=== PATIENT | male | born 1990 | race Caucasian/White ===

== ENCOUNTER 2017-02-05 20:15 | Emergency (ER) | payer OTHER ==
[~2017-02-05] VITALS: Ht 177.8 cm; Wt 81.6 kg
--- NOTE | 2017-02-05 20:40 | NUR ---
PT PRESENTED TO THE ER WITH A C/O EPIGASTRIC AND UMBILICAL ABD PAIN 10/25. SINCE SATURDAY AM. PT HAS HAD DIARRHEA SINCE SATURDAY. LAST BM WAS 0300 TODAY AND LAST TIME VOMITTED WAS 0200 TODAY. PT AMBULATED TO THE BATHROOM GUARDING HIS ABD. URINE SAMPLE OBTAINED. PT THEM AMBULATED BACK TO BED #2. PT IS ON THE MONITOR AND CONTINUOUS PULSE OX. RESP EVEN AND UNLABORED.
--- NOTE | 2017-02-05 20:50 | NUR ---
MIKHAIL LIANG IS AT THE BEDSIDE EVALUATING THE PT.
[2017-02-05] MEDS ORDERED: KETOROLAC TROMETHAMINE INJ 30 MG/ML VIAL ONE (20:57)
[2017-02-05] MEDS ORDERED: ONDANSETRON HCL/PF 4 MG/2 ML VIAL ONE (20:57)
[2017-02-05] MEDS ORDERED: KETOROLAC TROMETHAMINE INJ 30 MG/ML VIAL IV ONE (21:00)
[2017-02-05] MEDS ORDERED: IV NS 0.9% 1,000 ML BAG IV ONE (21:00)
[2017-02-05] MEDS ORDERED: ONDANSETRON HCL/PF 4 MG/2 ML VIAL IVP ONE (21:00)
--- NOTE | 2017-02-05 21:07 | NUR ---
PT REC'D MEDICATION ORDERED.
[2017-02-05 21:13] LABS: APPEARANCE,URINE Clear (CLEAR); BILIRUBIN,URINE SMALL (NEGATIVE); BLOOD, URINE Trace-intact Ery/uL (NEGATIVE); COLOR,URINE Yellow (YELLOW); KETONES,URINE 40 (NEGATIVE); LEUKOCYTE ESTERASE ,URINE Negative (NEGATIVE); NITRITE, URINE Negative (NEGATIVE); PROTEIN,URINE 30 mg/dl (NEGATIVE); UGLUCOSE Negative (NEGATIVE); UROBILINOGEN,URINE 0.2 EU/dL (0.2)
[2017-02-05 21:14] LABS: BASOPHILS % (AUTO) 0.1 % (0.0-2.0); EOSINOPHILS # (AUTO) 0.1 /CMM (0.0-0.7); EOSINOPHILS % (AUTO) 0.4 % (0.0-6.0); HEMATOCRIT 46 % (39-51); HEMOGLOBIN 15.9 g/dL (13.5-17.5); LYMPHOCYTES # (AUTO) 0.6 /CMM (0.8-4.8); LYMPHOCYTES % (AUTO) 4.1 % (20.0-44.0); MEAN CORPUSCULAR HEMOGLOBIN 32 PG (26.0-33.0); MEAN CORPUSCULAR HGB CONC 34 g/dl (31.0-36.0); MEAN CORPUSCULAR VOLUME 93 fL (80-96); MONOCYTES # (AUTO) 0.4 /CMM (0.1-1.30); MONOCYTES % (AUTO) 2.6 % (2.0-12.0); NEUTROPHILS # (AUTO) 13.7 /CMM (1.8-8.9); NEUTROPHILS % (AUTO) 92.8 % (43.0-81.0); PLATELET COUNT (AUTO) 241 /CMM (150-450); RDW COEFFICIENT OF VARIATION 11.7 (11.5-15.0); RED BLOOD CELL COUNT(AUTO) 4.94 MIL/uL (4.5-6.0); WHITE BLOOD COUNT (AUTO) 14.8 K/uL (4.3-11.0)
[2017-02-05 21:20] LABS: CALCIUM, SERUM 9.1 mg/dL (8.5-10.1); POTASSIUM 3.2 mmol/L (3.5-5.1)
[2017-02-05 21:23] LABS: INR 0.95 (0.87-1.13); PROTHROMBIN TIME 9.9 SECS (9.5-12.7)
[2017-02-05 21:23] LABS: BACTERIA,URINE None seen /HPF (None Seen); MUCUS,URINE Many /LPF (None Seen); SQUAMOUS EPITHELIAL CELL,UR Few /HPF (None Seen); WBC,URINE 0-2 /HPF (0-3)
[2017-02-05 21:25] LABS: ALBUMIN 4.1 g/dL (3.4-5.0); BILIRUBIN,DIRECT 0.1 mg/dL (0.0-0.2); BILIRUBIN,TOTAL 0.5 mg/dL (0.2-1.0); TOTAL PROTEIN, SERUM 7.7 g/dL (6.4-8.2)
[2017-02-05] MEDS ORDERED: POTASSIUM CHLORIDE 20 MEQ TAB.PRT.SR PO ONE ×2 (21:30→21:38)
--- NOTE | 2017-02-05 22:14 | NUR ---
IV removed. Catheter intact and site benign. Pressure and 4x4 applied to site. No bleeding noted.Patient discharged to home in stable condition. Written and verbal after care instructions given. Patient verbalizes understanding of instruction. PT'S BROTHER IS DRIVING PT HOME. VSS.
[2017-02-05 22:17] VITALS: BP 144/67
== END 2017-02-05 22:17 | disposition home or self-care (01) ==
LOC: ER 20:15
DX: A08.4 Viral intestinal infection, unspecified (principal)
CPT/HCPCS: 36415; 80048; 80076; 81001; 83690; 85025; 85730; 96361; 96374; 96375; 99284; A4606; J1885; J2405; Z7610; 81000-TC

== ENCOUNTER 2017-06-24 12:27 | Inpatient (IN) | payer MEDICAID, OTHER ==
[~2017-06-24] VITALS: Ht 185.4 cm; Wt 91.6 kg
--- NOTE | 2017-06-24 13:00 | NUR ---
Recieved patient to ed bed 12, pt is a/ox4 with c/o right sided abd pain x saturday. facial grimacing noted, guarding site. Skin is warm and non diaphoretic. NAD. VSS RR even and unlabored. Will cont to monitor
[2017-06-24] MEDS ORDERED: ONDANSETRON HCL/PF 4 MG/2 ML VIAL ONE ×2 (13:16→19:36)
[2017-06-24] MEDS ORDERED: HYDROMORPHONE INJ 2 MG/ML DISP.SYRIN ONE (13:20)
[2017-06-24 13:30] LABS: CALCIUM, SERUM 9.2 mg/dL (8.5-10.1); CREATININE 0.9 mg/dL (0.6-1.3); POTASSIUM 4.3 mmol/L (3.5-5.1)
[2017-06-24] MEDS ORDERED: MORPHINE SULFATE INJ 2 MG/ML DISP.SYRIN IV ONE (13:30)
[2017-06-24] MEDS ORDERED: ONDANSETRON HCL/PF 4 MG/2 ML VIAL IVP ONE (13:30)
[2017-06-24] MEDS ORDERED: HYDROMORPHONE 1 MG/1 ML DISP.SYRIN IV ONE (13:30)
[2017-06-24] MEDS ORDERED: IV NS 0.9% 1,000 ML BAG IV ONE (13:30)
[2017-06-24 13:33] LABS: INR 0.89 (0.85-1.15)
[2017-06-24 13:36] LABS: BILIRUBIN,DIRECT 0.2 mg/dL (0.0-0.2); BILIRUBIN,TOTAL 0.9 mg/dL (0.2-1.0); TOTAL PROTEIN, SERUM 7.6 g/dL (6.4-8.2)
[2017-06-24 13:37] LABS: BASOPHILS % (AUTO) 0.1 % (0.0-2.0); EOSINOPHILS % (AUTO) 0.8 % (0.0-6.0); HEMATOCRIT 43 % (39-51); HEMOGLOBIN 14.9 g/dL (13.5-17.5); LYMPHOCYTES % (AUTO) 10.9 % (20.0-44.0); MEAN CORPUSCULAR HGB CONC 35 g/dl (31.0-36.0); MEAN CORPUSCULAR VOLUME 94 fL (80-96); MONOCYTES # (AUTO) 0.4 /CMM (0.1-1.30); MONOCYTES % (AUTO) 4.5 % (2.0-12.0); NEUTROPHILS # (AUTO) 7.7 /CMM (1.8-8.9); NEUTROPHILS % (AUTO) 83.7 % (43.0-81.0); PLATELET COUNT (AUTO) 233 /CMM (150-450); RDW COEFFICIENT OF VARIATION 13.3 (11.5-15.0); RED BLOOD CELL COUNT(AUTO) 4.56 MIL/uL (4.5-6.0); WHITE BLOOD COUNT (AUTO) 9.2 K/uL (4.3-11.0)
[2017-06-24 13:52] LABS: APPEARANCE,URINE Clear (CLEAR); BILIRUBIN,URINE Negative (NEGATIVE); BLOOD, URINE Negative Ery/uL (NEGATIVE); COLOR,URINE Yellow (YELLOW); KETONES,URINE Negative (NEGATIVE); LEUKOCYTE ESTERASE ,URINE Negative (NEGATIVE); NITRITE, URINE Negative (NEGATIVE); PH,URINE 7.5 (5.0-8.0); PROTEIN,URINE Negative (NEGATIVE); UGLUCOSE Negative (NEGATIVE); UROBILINOGEN,URINE 0.2 EU/dL (0.2)
[2017-06-24] MEDS ORDERED: IOHEXOL-300 100 ML VIAL IV ONE (14:22)
[2017-06-24] MEDS ORDERED: IV NS 0.9% 250 ML IV ONE (14:22)
--- NOTE | 2017-06-24 15:10 | NUR ---
PAGEAlesia OSORIO FOR CONSULT
[2017-06-24] MEDS ORDERED: IV D5/0.45 NACL 1,000 ML IV ONE (15:11)
--- NOTE | 2017-06-24 15:39 | NUR ---
CALLED NURSE SUP FOR MEDSURG BED
--- NOTE | 2017-06-24 15:44 | NUR ---
PAGED EPIC FOR PANEL
--- NOTE | 2017-06-24 16:02 | NUR ---
Report given to Theresa LAZAR for cont of care.
--- NOTE | 2017-06-24 16:19 | NUR ---
Pt transferred to floor in stable condition.
--- NOTE | 2017-06-24 16:30 | NUR ---
MS/r d engineer New admission from emergency room with appendicitis. Patient fully admitted, no skin issues. Awaiting admitting orders.
[2017-06-24 16:55] VITALS: BP 134/75
[2017-06-24 17:20] VITALS: BP 134/75
--- NOTE | 2017-06-24 17:41 | NUR ---
MS/RN Consents Consent forms signed, pateint scheduled for appendicitis at 6p.
[2017-06-24] MEDS ORDERED: MIDAZOLAM HCL 2 MG/2ML VIAL ONE (17:51)
[2017-06-24] MEDS ORDERED: FENTANYL PF 100MCG/2ML AMPUL ONE (17:52)
[2017-06-24] MEDS ORDERED: VASOPRESSIN INJ 20 UNIT/ML VIAL ONE (17:53)
[2017-06-24] MEDS ORDERED: SUCCINYLCHOLINE CHLORIDE 20 MG/ML VIAL ONE (17:53)
[2017-06-24] MEDS ORDERED: ROCURONIUM BROMIDE 50 MG/5 ML ONE (17:53)
[2017-06-24] MEDS ORDERED: BUPIVACAINE 0.25% 75 MG/30 ML VIAL ONE (18:07)
--- NOTE | 2017-06-24 18:10 | NUR ---
MS/hall porter Patient taken to operating room, medical record with patient.
[2017-06-24] MEDS ORDERED: LIDOCAINE 1%-EPI 1:100,000 50 ML VIAL IJ ONE (18:30)
--- NOTE | 2017-06-24 18:30 | NUR ---
MS/RN End note Patient in surgery.
[2017-06-24] MEDS ORDERED: ACETAMINOPHEN 325 MG TABLET PO PRN (19:30)
[2017-06-24] MEDS ORDERED: ONDANSETRON HCL/PF 4 MG/2 ML VIAL IVP PRN ×2 (19:30)
[2017-06-24] MEDS ORDERED: HYDROMORPHONE INJ 2 MG/ML DISP.SYRIN IV PRN (19:30)
[2017-06-24] MEDS ORDERED: MAGNESIUM HYDROXIDE 30 ML UDC PO PRN (19:30)
[2017-06-24] MEDS ORDERED: ZOLPIDEM TARTRATE 5 MG TABLET PO PRN (19:30)
[2017-06-24] MEDS ORDERED: Z GUARD REMEDY 2 OZ OINT TP PRN (19:30)
[2017-06-24 20:00] VITALS: BP 128/78
[2017-06-24] MEDS ORDERED: FENTANYL PF 100MCG/2ML AMPUL IV PRN (20:00)
--- NOTE | 2017-06-24 20:00 | NUR ---
MS RN NOTE: PATIENT BACK ON FROM SURGERY IN STABLE CONDITION. BREATHING EVEN AND UNLABORED, NO SOB NOTED. IV TO RAC IN PLACE. VITAL SIGNS STABLE. 3 LAP SITES TO ABDOMEN NOTED, WITH NO BLEEDING/DRAINAGE. BED LOCKED AND IN LOWEST POSITION, CALL LIGHT IN REACH. WILL CONTINUE TO MONITOR.
[2017-06-24 20:15] VITALS: BP 114/68
[2017-06-24 20:30] VITALS: BP 118/67
[2017-06-24] MEDS: PIPERACILLIN /TAZOBACTAM 3.375 G in IV D5W 50 ML IV SCH (20:51)
--- NOTE | 2017-06-24 21:00 | NUR ---
MS RN NOTE: PATIENT COMPLAINS OF PAIN 7/10 TO ABDOMEN, NORCO 5/325MG ORAL GIVEN PER MD ORDER. WILL CONTINUE TO MONITOR.
[2017-06-24] MEDS: HYDROCODONE/APAP 5/325MG 1 EACH TABLET PO PRN (22:49)
--- NOTE | 2017-06-25 01:00 | NUR ---
MS RN NOTE: PATIENT REQUESTING SLEEPING MEDICATIONS, AMBIEN 5MG ORAL GIVEN PER MD ORDER. WILL CONTINUE TO MONITOR.
[2017-06-25] MEDS: PIPERACILLIN /TAZOBACTAM 3.375 G in IV D5W 50 ML IV SCH ×3 (02:50→12:00)
--- NOTE | 2017-06-25 06:30 | NUR ---
MS RN NOTE: PATIENT RESTING IN BED, NO ACUTE DISTRESS NOTED. BREATHING EVEN AND UNLABORED, NO SOB NOTED. IV TO RAC IN PLACE. VITAL SIGNS STABLE. 3 LAP SITES TO ABDOMEN NOTED, WITH NO BLEEDING/DRAINAGE. BED LOCKED AND IN LOWEST POSITION, CALL LIGHT IN REACH. WILL ENDORSE TO DAY NURSE TO CONTINUE WITH PLAN OF CARE.
[2017-06-25 06:42] LABS: HEMATOCRIT 40 % (39-51); HEMOGLOBIN 14.1 g/dL (13.5-17.5); LYMPHOCYTES # (AUTO) 0.9 /CMM (0.8-4.8); LYMPHOCYTES % (AUTO) 9.8 % (20.0-44.0); MEAN CORPUSCULAR HGB CONC 35 g/dl (31.0-36.0); MEAN CORPUSCULAR VOLUME 95 fL (80-96); MONOCYTES # (AUTO) 0.4 /CMM (0.1-1.30); MONOCYTES % (AUTO) 4.5 % (2.0-12.0); NEUTROPHILS # (AUTO) 7.6 /CMM (1.8-8.9); NEUTROPHILS % (AUTO) 85.7 % (43.0-81.0); PLATELET COUNT (AUTO) 222 /CMM (150-450); RDW COEFFICIENT OF VARIATION 13.1 (11.5-15.0); RED BLOOD CELL COUNT(AUTO) 4.25 MIL/uL (4.5-6.0); WHITE BLOOD COUNT (AUTO) 8.9 K/uL (4.3-11.0)
[2017-06-25 07:04] LABS: CALCIUM, SERUM 8.6 mg/dL (8.5-10.1); CREATININE 1.1 mg/dL (0.6-1.3); PHOSPHORUS 4.1 mg/dL (2.5-4.9); POTASSIUM 4.1 mmol/L (3.5-5.1)
[2017-06-25 08:00] VITALS: BP 119/53
--- NOTE | 2017-06-25 08:00 | NUR ---
MS RN NOTES PATIENT IN BED RESTING NO SOB OR ACUTE DISTRESS NOTED. PATIENT ALERT, ORIENTED X4. NO SOB OR ACUTE DISTRESS NOTED. PATIENT WITH 3 SMALL SURGICAL INCISIONS ON THE ABDOMEN INTACT PATENT OPEN TO AIR. NO DRAINAGE NOTED. CLEAN DRY. PERIPHERAL IV INTACT PATENT. BED IN LOW LOCKED POSITION , CALL LIGHT WITHIN REACH. WILL CONTINUE TO MONITOR.
[2017-06-25] MEDS: HYDROCODONE/APAP 5/325MG 1 EACH TABLET PO PRN (08:36)
[2017-06-25] MEDS ORDERED: PANTOPRAZOLE 40 MG TABLET.DR PO SCH (09:00)
--- NOTE | 2017-06-25 10:00 | NUR ---
MS RN NOTES PATIENT SEEN AND EVALUATED BY GILDA DAVE CLEAR FOR DISCHARGE.
[2017-06-25] MEDS ORDERED: HYDR-552 PO (12:24)
[2017-06-25] MEDS ORDERED: CEPH-570 PO (12:24)
--- NOTE | 2017-06-25 13:00 | NUR ---
MS RN NOTES PATIENT DISCHARGED HOME WITH FRIEND. IN STABLE CONDITION. PATIENT ALERT, ORIENTED X3. DISCHARGE INSTRUCTIONS PROVIDED VERBALIZED UNDERSTANDING. DR. SEXTON INFORMATION PROVIDED FOR FOLLOW UP. MD AWARE OF ALL ABNORMAL LABS. PERIPHERAL IV REMOVED WITH MINIMAL BLEEDING. ID BAND REMOVED. EDUCATED ON INCISION CARE AFTER SURGERY, VERBALIZED UNDERSTANDING. ALL BELONGINGS ACCOUNTED FOR, BELONGING LIST SIGNED. PROVIDED PRESCRIPTION TO PATIENT AND INSTRUCTED ON USE OF MEDICATIONS. PATIENT ESCORTED TO CAR BY WOODYARD OPERATOR.
== END 2017-06-25 13:00 | disposition home or self-care (01) | DRG 343 ==
LOC: ER 12:28 → MEDSG2 16:04
PROVIDERS: ADMIT Nurse Practitioner Acute Care; ATTEND Nurse Practitioner Acute Care
PROC: 0DTJ4ZZ Resection of Appendix, Percutaneous Endoscopic Approach (ICD-10-PCS; principal; 2017-06-24 18:00)
DX: K35.80 Unspecified acute appendicitis (principal); E66.3 Overweight; Z68.26 Body mass index [BMI] 26.0-26.9, adult; F12.90 Cannabis use, unspecified, uncomplicated; M43.06 Spondylolysis, lumbar region
CPT/HCPCS: 36415; 80048-TC; 80061-TC; 80076-TC; 81000-TC; 83690-TC; 83735-TC; 84100-TC; 85025-TC; 85730-TC; 87081-TC; 88304-TC; 88305-TC; A4606; J0330; J1100; J1170; J1885; J2250; J2405; J2543; J2704; J3010; J3490; J7030; J7050; J7060; Q9967; Z7610